=== PATIENT | male | born 1995 | race African-American/Black ===

== ENCOUNTER 2016-11-26 18:36 | Emergency (ER) | payer MEDICAID ==
[~2016-11-26] VITALS: Ht 175.3 cm; Wt 63.5 kg
[~2016-11-26 18:36] MED LIST: NKM; VICODIN 5-3001 EACH ORAL
[2016-11-26 19:16] LABS: APPEARANCE,URINE CLEAR; KETONES,URINE NEGATIVE (NEGATIVE); LEUKOCYTE ESTERASE ,URINE 1+ (NEGATIVE); NITRITE,URINE NEGATIVE (NEGATIVE); PH,URINE 7 (4.5-8.0); PROTEIN,URINE NEGATIVE (NEGATIVE); UROBILINOGEN,URINE 4 MG/DL (0.0-1.0)
[2016-11-26 19:19] LABS: AMORPHOUS SEDIMENT,UR FEW /LPF; BACTERIA,URINE FEW /HPF; RBC,URINE 0-2 /HPF (0 - 0)
[2016-11-26] MEDS ORDERED: Azithromycin 250mg tab ORAL ONE (19:45)
[2016-11-26] MEDS ORDERED: Lidocaine 1% MPF 10mg/ml 5ml ONE (19:47)
[2016-11-26 20:01] VITALS: BP 127/75
[2016-11-26 20:02] VITALS: BP 127/75
--- NOTE | 2016-11-27 17:12 | Emergency Room Report ---
History of Present Illness General Chief Complaint: Male Urogenital Problems Source: Patient Present Illness HPI The pt is a 21 yo M presenting for STD exposure. The pt states that he has had a recent female sexual partner with chlamydia. The pt is being very vague but denies N, V, F, chills, flank pain, abd pain, dysuria, hematuria, testicular pain, penile discharge. Allergies: Coded Allergies: No Known Allergies (Unverified , 12/23/13) Patient History Past Medical History: see triage record Pertinent Family History: none Reviewed Nursing Documentation: PMH: Agreed, PSxH: Agreed Nursing Documentation-PMH Past Medical History: No Stated History Review of Systems All Other Systems: negative except mentioned in HPI Physical Exam Vital Signs Date Time Temp Pulse Resp B/P Pulse Ox O2 Delivery O2 Flow Rate FiO2 11/26/16 18:51 98.8 81 14 124/71 100 Room Air Sp02 EP Interpretation: reviewed, normal General Appearance: no apparent distress, alert, GCS 15, non-toxic Head: normocephalic, atraumatic Eyes: bilateral eye PERRL, bilateral eye normal inspection ENT: hearing grossly normal, normal pharynx, no angioedema, normal voice Gastrointestinal: normal bowel sounds, non tender, soft, non-distended, no guarding, no rebound Rectal: deferred Genitourinary: normal inspection, no CVA tenderness, penis normal, scrotum normal Musculoskeletal: back normal, gait/station normal, normal range of motion, non- tender Neurologic: alert, oriented x3, responsive, motor strength/tone normal, sensory intact, speech normal Psychiatric: judgement/insight normal, memory normal, mood/affect normal, no suicidal/homicidal ideation Skin: normal color, no rash, warm/dry, well hydrated Lymphatic: no adenopathy Medical Decision Making PA Attestation Dr. Garza is my supervising physician. Patient management was discussed with my supervising physician Diagnostic Impression: Primary Impression: Possible exposure to STD ER Course The pt is a 21 yo M presenting for STD exposure. DDx: STD, orchitis, UTI, urethritis PE: Vitals wnl. Penis is normal. No edema. No lesions. No discoloration. Testicles are round, rubbery, no masses. Non tender. No CVA tenderness. UA: Not consistent with UTI. Only 0-2 RBC, No occult blood Pt treated with azithromycin and Rocephin. ER precautions given Laboratory Tests Test 11/26/16 19:04 Urine Color Yellow Urine Appearance Clear Urine pH 7 (4.5-8.0) Urine Specific Springer 1.010 (1.005-1.035) Urine Protein Negative (NEGATIVE) Urine Glucose (UA) Negative (NEGATIVE) Urine Ketones Negative (NEGATIVE) Urine Occult Blood Negative (NEGATIVE) Urine Nitrite Negative (NEGATIVE) Urine Bilirubin Negative (NEGATIVE) Urine Urobilinogen 4 MG/DL (0.0-1.0) H Urine Leukocyte Esterase 1+ (NEGATIVE) H Urine RBC 0-2 /HPF (0 - 0) H Urine WBC 2-4 /HPF (0 - 0) Urine Squamous Epithelial Cells None /LPF (NONE/OCC) Urine Amorphous Sediment Few /LPF (NONE) H Urine Bacteria Few /HPF (NONE) Lab Results Impression UA: Not consistent with UTI. Only 0-2 RBC, No occult blood Last Vital Signs Date Time Temp Pulse Resp B/P Pulse Ox O2 Delivery O2 Flow Rate FiO2 11/26/16 20:02 98.7 78 15 127/75 99 Room Air Status: improved Disposition: HOME, SELF-CARE Condition: Improved Patient Instructions: Sexually Transmitted Disease Additional Instructions: I discussed my findings with the patient. All questions and concerns have been answered. Treatment and medication compliance have been addressed. I advised the patient that they need to follow up with PMD in 3-5 days. Return to ED if symptoms worsen, new symptoms arise, or if needed for any reason. Patient verbalized understanding of discharge instructions. NATALIE SHARMA Nov 27, 2016 17:12
== END 2016-11-26 20:03 | disposition home or self-care (01) ==
LOC: EMR 19:19
DX: Z20.2 Contact with and (suspected) exposure to infections with a predominantly sexual mode of transmission (principal)
CPT/HCPCS: 81003; 96372; 99283; J0696; Q0144

== ENCOUNTER 2017-02-23 17:49 | Emergency (ER) | payer OTHER, MEDICAID ==
[~2017-02-23] VITALS: Ht 165.1 cm; Wt 68.0 kg
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
[2017-02-23 19:16] VITALS: BP 146/80
== END 2017-02-23 19:19 ==
LOC: EDBD 17:49 → EMR 18:15
DX: M54.2 Cervicalgia (principal); F11.90 Opioid use, unspecified, uncomplicated
CPT/HCPCS: 99283

== ENCOUNTER 2017-11-18 18:17 | Emergency (ER) | payer MEDICAID, OTHER ==
[~2017-11-18] VITALS: Ht 175.3 cm; Wt 63.5 kg
[2017-11-18] MEDS ORDERED: Methocarbamol 750mg tab ORAL ONE (19:15)
[2017-11-18] MEDS ORDERED: IBUPROFEN600 MG ORAL (20:20)
[2017-11-18] MEDS ORDERED: ROBAXIN-750750 MG PO (20:20)
[2017-11-18] MEDS ORDERED: PROMETHAZINE-D118 ML ORAL (20:24)
[2017-11-18 20:28] VITALS: BP 122/83
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
--- NOTE | 2017-11-19 10:17 | Diagnostic Imaging Report ---
Indication: Neck pain. Technique: Continuous helical imaging of the cervical spine was obtained transaxially from the skull base to the upper thoracic spine. 2-D coronal and sagittal reformatted images were obtained. Automatic Exposure Control was utilized. Total Dose length Product (DLP): 320.[address] Dose Index Volume (CTDIvol): 13.77 mGy Comparison: None Findings: There is no evidence of an acute fracture or malalignment. Atlantoaxial alignment appears normal. Height and configuration of the vertebral bodies and intervertebral discs are within normal limits. Uncovertebral joints and facets are unremarkable. There is no soft tissue swelling. Impression: Negative cervical spine CT The CT scanner at [facility] is accredited by the [employer] and the scans are performed using dose optimization techniques as appropriate to a performed exam including Automatic Exposure control.
== END 2017-11-18 20:29 | disposition home or self-care (01) ==
LOC: EMR 18:57
DX: R05 Cough (principal); T14.8XXA Other injury of unspecified body region, initial encounter; V49.9XXA Car occupant (driver) (passenger) injured in unspecified traffic accident, initial encounter; Y92.410 Unspecified street and highway as the place of occurrence of the external cause
CPT/HCPCS: 72125; 99284